=== PATIENT | male | born 1995 | race Caucasian/White ===

== ENCOUNTER 2024-09-05 18:15 | Emergency (ER) | payer BC ==
[~2024-09-05] VITALS: Ht 175.3 cm; Wt 84.1 kg
[2024-09-05] MEDS ORDERED: METRONIDAZOLE500 MG PO (19:06)
[2024-09-05] MEDS ORDERED: CIPRO500 MG PO (19:06)
[2024-09-05] MEDS ORDERED: REMICADE100 MG/VIA (19:06)
[2024-09-05] MEDS: KETOROLAC TROMETHAMINE 30 MG/ML VIAL IV STA (19:50)
[2024-09-05] MEDS: SODIUM CHLORIDE 0.9% 1000ML 1,000 ML IV ONE (19:52)
[2024-09-05 21:25] VITALS: PULSE 63; RESP 18; TEMP 98.3
[2024-09-05] MEDS: LIDOCAINE HCL 1% LOCAL INJ 20 ML VIAL INJ ONE (21:42)
[2024-09-05 21:49] VITALS: BP 136/77; PULSE 63; RESP 18; TEMP 98.3; O2SAT 98
== END 2024-09-05 21:46 | disposition home or self-care (01) ==
LOC: FSED 18:36
DX: K62.89 Other specified diseases of anus and rectum (principal); K61.0 Anal abscess
CPT/HCPCS: 46050; 72193; 80048; 85025; 87071; 87205; 99284; J1885; J2003; J2543; J7030